=== PATIENT | female | born 1955 | race Caucasian/White ===

== ENCOUNTER → 2017-01-05 | Outpatient (CLI) | payer BC ==
[2017-01-05 13:42] LABS: HEMOGLOBIN 13.4 gm/dl (12.3-15.3); RED BLOOD COUNT 4.55 M/UL (4.00-5.10); WHITE BLOOD COUNT 15.5 K/UL (4.5-11.0)
== END ==
LOC: OPSV 13:13
PROVIDERS: Emergency Medicine
DX: E83.119 Hemochromatosis, unspecified (principal)
CPT/HCPCS: 36415; 85027; 99195

== ENCOUNTER → 2017-01-13 | Outpatient (CLI) | payer BC ==
[2017-01-13 10:35] LABS: HEMOGLOBIN 11.9 gm/dl (12.3-15.3); RED BLOOD COUNT 3.98 M/UL (4.00-5.10); WHITE BLOOD COUNT 12.4 K/UL (4.5-11.0)
== END ==
LOC: LAB 09:40
PROVIDERS: Emergency Medicine
DX: E11.9 Type 2 diabetes mellitus without complications (principal); I10 Essential (primary) hypertension; E78.2 Mixed hyperlipidemia
CPT/HCPCS: 80053; 83036; 85027

== ENCOUNTER → 2021-01-08 | Outpatient (CLI) | payer SELFPAY ==
[~2021-01-08] MED LIST: ASPIRIN325 MG PO; COLACE100 MG PO; CYMBALTA60 MG PO; DESYREL 50 MG T50 MG PO; ELAVIL 25 MG TA25 MG PO; ENOXAPARIN40 MG/0.4 SC; FISH OIL 1,0001 EACH PO; FUROSEMIDE20 MG PO; HYDROCODON-ACE1 EAC4 PO; HYDROCODON-ACE1 EAC6 PO; ISOSORBIDE MONO30 MG PO; LASIX20 MG PO; LEVEMIR FL100 UNIT/1 SQ; LIORESAL TAB 1010 MG PO; LIPITOR TAB 1010 MG PO; LISINOPRIL2.5 MG PO; LOVENOX40 MG/0.4 SQ; METOPROLOL TART50 MG PO; NEURONTIN300 MG PO; NORCO 5-325 TA1 EACH PO; NOVOLOG FL100 UNIT/1 INJ; NOVOLOG FL100 UNIT/1 SC; PLAVIX 75 MG TA75 MG PO; POTASSIUM99 M1 PO; PROTONIX 40 MG40 M1 PO; TOPIRAMATE25 MG PO; ZYLOPRIM 100 M100 MG PO
== END ==
LOC: LAB 11:57
PROVIDERS: Emergency Medicine
DX: I10 Essential (primary) hypertension (principal); E11.65 Type 2 diabetes mellitus with hyperglycemia; E78.2 Mixed hyperlipidemia
CPT/HCPCS: 36415; 80053; 83036

== ENCOUNTER 2021-05-13 12:02 | Inpatient (IN) | payer MEDICAID ==
[~2021-05-13] VITALS: Ht 180.3 cm; Wt 111.8 kg
[~2021-05-13 12:02] MED LIST changes: -COLACE100 MG PO; -DESYREL 50 MG T50 MG PO; -ENOXAPARIN40 MG/0.4 SC; -HYDROCODON-ACE1 EAC4 PO; -HYDROCODON-ACE1 EAC6 PO; -LASIX20 MG PO; -LOVENOX40 MG/0.4 SQ; -NEURONTIN300 MG PO; -NOVOLOG FL100 UNIT/1 INJ
[2021-05-13 12:23] LABS: HEMOGLOBIN 15.2 gm/dl (12.3-15.3); RED BLOOD COUNT 4.25 M/UL (4.00-5.10); WHITE BLOOD COUNT 12.1 K/UL (4.5-11.0)
[2021-05-13 12:51] LABS: BUN/CREATININE RATIO 12 (0-10)
[2021-05-13] MEDS ORDERED: DESYREL 50 MG T50 MG PO (16:37)
[2021-05-13] MEDS ORDERED: LASIX20 MG PO (17:12)
[2021-05-13] MEDS ORDERED: NOVOLOG FL100 UNIT/1 INJ (17:15)
[2021-05-13] MEDS ORDERED: NEURONTIN300 MG PO (20:18)
[2021-05-14 07:54] LABS: HEMOGLOBIN 11.6 gm/dl (12.3-15.3); RED BLOOD COUNT 3.27 M/UL (4.00-5.10); WHITE BLOOD COUNT 8.9 K/UL (4.5-11.0)
[2021-05-15 05:49] LABS: WHITE BLOOD COUNT 8.6 K/UL (4.5-11.0)
[2021-05-15 05:50] LABS: HEMOGLOBIN 9.2 gm/dl (12.3-15.3); RED BLOOD COUNT 2.66 M/UL (4.00-5.10)
[2021-05-16 07:32] LABS: HEMOGLOBIN 7.5 gm/dl (12.3-15.3); RED BLOOD COUNT 2.13 M/UL (4.00-5.10); WHITE BLOOD COUNT 8.6 K/UL (4.5-11.0)
[2021-05-16 07:39] LABS: BUN/CREATININE RATIO 20 (0-10)
[2021-05-17 04:50] LABS: RED BLOOD COUNT 1.92 M/UL (4.00-5.10); WHITE BLOOD COUNT 7.7 K/UL (4.5-11.0)
[2021-05-17 05:01] LABS: HEMOGLOBIN 6.8 gm/dl (12.3-15.3)
[2021-05-18 06:10] LABS: RED BLOOD COUNT 3.15 M/UL (4.00-5.10); WHITE BLOOD COUNT 6.9 K/UL (4.5-11.0)
[2021-05-18 06:26] LABS: BUN/CREATININE RATIO 14 (0-10)
[2021-05-19 03:25] LABS: HEMOGLOBIN 10.6 gm/dl (12.3-15.3); RED BLOOD COUNT 3.11 M/UL (4.00-5.10); WHITE BLOOD COUNT 7.2 K/UL (4.5-11.0)
[2021-05-19] MEDS ORDERED: ENOXAPARIN40 MG/0.4 SC (10:03)
[2021-05-19] MEDS ORDERED: HYDROCODON-ACE1 EAC4 PO (10:03)
[2021-05-19] MEDS ORDERED: COLACE100 MG PO (10:03)
[2021-05-19] MEDS ORDERED: LOVENOX40 MG/0.4 SQ (12:45)
--- NOTE | 2021-05-19 13:32 | NUR ---
INSTRUCTED PATIENT LOVENOX E-SCRIPT TO BRANDON Elias, FOLLOW UP APPOINTMNTS SCHEDULED WITH ORTHO AND GENERAL SURGERY. CONTINUE HOME MEDS. VERBALIZED UNDERSTANDING. Mago DURHAM,
[2021-05-19] MEDS ORDERED: HYDROCODON-ACE1 EAC6 PO (14:54)
== END 2021-05-19 15:45 | disposition home or self-care (01) | DRG 956 ==
LOC: ER1 12:02 → CDU 15:47 → PROG CARE 15:47 → M/S 05-16 15:12
PROVIDERS: Internal Medicine; Physician Assistant; Student in an Organized Health Care Education/Training Program; ADMIT Surgery
PROC: 0QSC04Z Reposition Left Lower Femur with Internal Fixation Device, Open Approach (ICD-10-PCS; 2021-05-14)
PROC: 30233N1 Transfusion of Nonautologous Red Blood Cells into Peripheral Vein, Percutaneous Approach (ICD-10-PCS; principal; 2021-05-17)
DX: S72.402A Unspecified fracture of lower end of left femur, initial encounter for closed fracture (principal); S27.0XXA Traumatic pneumothorax, initial encounter; S32.049A Unspecified fracture of fourth lumbar vertebra, initial encounter for closed fracture; D62 Acute posthemorrhagic anemia; Z20.822 Contact with and (suspected) exposure to COVID-19; E11.65 Type 2 diabetes mellitus with hyperglycemia; I95.9 Hypotension, unspecified; E87.6 Hypokalemia; F17.210 Nicotine dependence, cigarettes, uncomplicated; E78.5 Hyperlipidemia, unspecified; Z96.611 Presence of right artificial shoulder joint; E66.01 Morbid (severe) obesity due to excess calories; J44.9 Chronic obstructive pulmonary disease, unspecified; I10 Essential (primary) hypertension; Z96.653 Presence of artificial knee joint, bilateral; K42.9 Umbilical hernia without obstruction or gangrene; Z79.4 Long term (current) use of insulin; V49.9XXA Car occupant (driver) (passenger) injured in unspecified traffic accident, initial encounter; Y92.9 Unspecified place or not applicable; Z90.49 Acquired absence of other specified parts of digestive tract; Z90.710 Acquired absence of both cervix and uterus; Z84.1 Family history of disorders of kidney and ureter; Z82.49 Family history of ischemic heart disease and other diseases of the circulatory system; Z80.9 Family history of malignant neoplasm, unspecified; Z88.8 Allergy status to other drugs, medicaments and biological substances; Z68.30 Body mass index [BMI] 30.0-30.9, adult
CPT/HCPCS: 36415; 36430; 70450; 71045; 71260; 72125; 72170; 73060; 73070; 73552; 73700; 76000; 80048; 80053; 80307; 81001; 82550; 82553; 82962; 83036; 83605; 84484; 85025; 85610; 85730; 86850; 86870; 86900; 86901; 86920; 86922; 90715; 93005; 94640; 94664; 94760; 97110-GP-CQ; 97116-GP-CQ; 97162; 97167; 97530-GP-CQ; 97535; 99285; A6212; C1713; G0480; J0171; J0690; J1100; J1170; J1650; J2250; J2270; J2405; J2704; J2795; J3010; J7030; J7050; J7120; P9016; Q9965; U0002

== ENCOUNTER → 2021-08-13 | Outpatient (CLI) | payer OTHER ==
[~2021-08-13] MED LIST changes: +COLACE100 MG PO; +DESYREL 50 MG T50 MG PO; +ENOXAPARIN40 MG/0.4 SC; +HYDROCODON-ACE1 EAC4 PO; +HYDROCODON-ACE1 EAC6 PO; +LASIX20 MG PO; +LOVENOX40 MG/0.4 SQ; +NEURONTIN300 MG PO; +NOVOLOG FL100 UNIT/1 INJ
[2021-08-13 09:46] LABS: HEMOGLOBIN 14.6 gm/dl (12.3-15.3); RED BLOOD COUNT 4.08 M/UL (4.00-5.10); WHITE BLOOD COUNT 7.2 K/UL (4.5-11.0)
== END ==
LOC: LAB 09:23
PROVIDERS: Emergency Medicine
DX: E11.65 Type 2 diabetes mellitus with hyperglycemia (principal); E78.2 Mixed hyperlipidemia; I10 Essential (primary) hypertension
CPT/HCPCS: 36415; 80053; 83036; 84550; 85025

== ENCOUNTER → 2022-02-27 | Outpatient (CLI) | payer MEDICARE ==
[2022-02-27 11:56] LABS: HEMOGLOBIN 14.5 gm/dl (12.3-15.3); RED BLOOD COUNT 4.08 M/UL (4.00-5.10); WHITE BLOOD COUNT 7.9 K/UL (4.5-11.0)
[2022-02-28 09:18] LABS: CREATININE, URINE 22.8 mg/dL (Not Estab.); MICROALB/CREAT RATIO <13 (0-29)
[2022-03-01 13:12] LABS: CHOLESTEROL, TOTAL 114 mg/dL (100-199); HDL-C 27 mg/dL (>39); HDL-P (TOTAL) 23.8 umol/L (>=30.5); LARGE HDL-P 3.7 umol/L (>=4.8); LARGE VLDL-P 9.3 nmol/L (<=2.7); LDL SIZE 19.6 nm (>20.5); LDL SIZE 19.6 nm (>=20.8); LDL-C 56 mg/dL (0-99); LDL-P 870 nmol/L (<1000); LP-IR SCORE 71 (<=45); SMALL LDL-P 721 nmol/L (<=527); TRIGLYCERIDES 183 mg/dL (0-149); VLDL SIZE 53.4 nm (<=46.6)
== END ==
LOC: LAB 11:22 → LBRF 11:22
PROVIDERS: Emergency Medicine
DX: I25.10 Atherosclerotic heart disease of native coronary artery without angina pectoris (principal); I10 Essential (primary) hypertension; E78.2 Mixed hyperlipidemia; G47.09 Other insomnia; E11.42 Type 2 diabetes mellitus with diabetic polyneuropathy; E55.9 Vitamin D deficiency, unspecified
CPT/HCPCS: 36415; 80053; 80061; 82043; 82306; 82570; 83036; 83704; 84443; 84550; 85025

== ENCOUNTER → 2022-03-31 | Outpatient (CLI) | payer MEDICARE ==
[2022-03-31 13:14] LABS: HEMOGLOBIN 13.3 gm/dl (12.3-15.3); RED BLOOD COUNT 3.78 M/UL (4.00-5.10); WHITE BLOOD COUNT 5.5 K/UL (4.5-11.0)
== END ==
LOC: LAB 11:58
PROVIDERS: Emergency Medicine
DX: R07.89 Other chest pain (principal); R53.83 Other fatigue; I25.118 Atherosclerotic heart disease of native coronary artery with other forms of angina pectoris
CPT/HCPCS: 36415; 80053; 82550; 84484; 85025; 85379; 93005

== ENCOUNTER 2022-04-01 17:04 | Emergency (ER) | payer MEDICARE ==
[2022-04-01 17:49] LABS: HEMOGLOBIN 13.7 gm/dl (12.3-15.3); RED BLOOD COUNT 3.84 M/UL (4.00-5.10); WHITE BLOOD COUNT 6.5 K/UL (4.5-11.0)
[2022-04-01 18:19] LABS: BUN/CREATININE RATIO 13 (0-10)
== END 2022-04-01 23:15 | disposition home or self-care (01) ==
LOC: ER1 17:04
PROVIDERS: Physician Assistant
DX: R07.89 Other chest pain (principal); I25.10 Atherosclerotic heart disease of native coronary artery without angina pectoris; E11.9 Type 2 diabetes mellitus without complications; I10 Essential (primary) hypertension; J44.9 Chronic obstructive pulmonary disease, unspecified; Z86.73 Personal history of transient ischemic attack (TIA), and cerebral infarction without residual deficits; Z90.89 Acquired absence of other organs; Z90.49 Acquired absence of other specified parts of digestive tract; Z90.710 Acquired absence of both cervix and uterus; Z79.02 Long term (current) use of antithrombotics/antiplatelets; Z79.899 Other long term (current) drug therapy
CPT/HCPCS: 80053; 82550; 82553; 84484; 85025; 93005; 99285; Q9967

== ENCOUNTER → 2022-04-03 | Outpatient (CLI) | payer MEDICARE | LOC: OPSV 13:34 | DX: E83.110 Hereditary hemochromatosis (principal) | CPT/HCPCS: 99195 ==

== ENCOUNTER → 2022-07-20 | Outpatient (CLI) | payer MEDICARE, OTHER ==
[2022-07-20 10:38] LABS: HEMOGLOBIN 13.7 gm/dl (12.3-15.3); RED BLOOD COUNT 3.83 M/UL (4.00-5.10)
[2022-07-20 10:56] LABS: BUN/CREATININE RATIO 14 (0-10)
== END ==
LOC: LAB 10:03
PROVIDERS: Emergency Medicine
DX: I10 Essential (primary) hypertension (principal); E78.2 Mixed hyperlipidemia; E11.65 Type 2 diabetes mellitus with hyperglycemia
CPT/HCPCS: 80053; 83036; 85025